=== PATIENT | male | born 1980 | race Two or more races ===

== ENCOUNTER 2020-05-22 10:00 | Emergency (ER) | payer SELFPAY ==
[~2020-05-22] VITALS: Ht 167.6 cm; Wt 72.6 kg
[2020-05-22] MEDS ORDERED: ACETAMINOPHEN/CODEINE#3 (300/30mg) TAB PO ONE (11:15)
[2020-05-22 14:33] VITALS: BP 125/80
== END 2020-05-22 14:38 | disposition home or self-care (01) ==
LOC: ER 10:00 → EDBD 10:00 → ER 14:38
DX: S06.0X1A Concussion with loss of consciousness of 30 minutes or less, initial encounter (principal); M25.552 Pain in left hip; Y04.0XXA Assault by unarmed brawl or fight, initial encounter; Y93.89 Activity, other specified; Y92.89 Other specified places as the place of occurrence of the external cause; Y99.8 Other external cause status
CPT/HCPCS: 70450; 72125; 73502